=== PATIENT | female | born 1955 | race Caucasian/White ===

== ENCOUNTER → 2020-01-03 | Outpatient (CLI) | payer OTHER ==
[~2020-01-03] MED LIST: AMOX500 PO; CEPH500 PO; CIPR500 PO; Cipro500 MG PO; DIAZ5 PO; Flagyl500 MG PO; Flexeril 10 mg10 MG PO; HYDACE5 PO; METPRE4DP PO; Motrin800 MG PO; NAPR550 PO; Norco 5-325 Ta1 EACH PO; OXYACE5T PO; Phenergan25 M1 PO; Zofran4 MG PO
== END | disposition home or self-care (01) ==
LOC: LAB EV 10:58 → LAB SHORT 10:58
DX: J20.9 Acute bronchitis, unspecified (principal); Z20.828 Contact with and (suspected) exposure to other viral communicable diseases
CPT/HCPCS: U0003

== ENCOUNTER → 2023-03-08 | Outpatient (CLI) | payer MEDICARE, OTHER | LOC: LAB 13:25 → LAB SHORT 13:25 | DX: L02.91 Cutaneous abscess, unspecified (principal) | CPT/HCPCS: 87070; 87077; 87147; 87186; 87205 ==

== ENCOUNTER 2024-03-31 16:40 | Emergency (ER) | payer MEDICARE, OTHER ==
[~2024-03-31] VITALS: Ht 167.6 cm; Wt 65.3 kg
[2024-03-31 18:14] LABS: BASOPHILS ABSOLUTE AUTO 0.05 K/mm3 (0.00-0.23); BASOPHILS PERCENT AUTO 1 % (0-2); EOSINOPHILS PERCENT AUTO 4 % (0-6); Hematocrit 36.6 % (33.0-51.0); Hemoglobin 12.4 g/dL (11.5-16.0); IMMATURE GRAN ABSOLUTE AUTO 0.04 K/mm3 (0.00-0.10); IMMATURE GRAN PERCENT AUTO 1 % (0-1); LYMPHOCYTES ABSOLUTE AUTO 2.32 K/mm3 (0.84-5.20); LYMPHOCYTES PERCENT AUTO 28 % (21-46); MONOCYTES PERCENT AUTO 8 % (4-13); Mean Corpuscular HGB 29.7 pg (26.0-34.0); Mean Corpuscular HGB Conc 33.9 g/dL (31.5-36.5); Mean Corpuscular Volume 88 fL (80-100); Mean Platelet Volume 10.3 fL (9.1-12.4); NEUTROPHILS ABSOLUTE AUTO 5.03 K/mm3 (1.96-9.15); NEUTROPHILS PERCENT AUTO 60 % (41-73); Platelet Count 254 K/mm3 (150-400); RDW Coefficient Variation 12.1 % (11.7-14.2); Red Blood Cell Count 4.18 M/mm3 (3.80-5.20); White Blood Cell Count 8.44 K/mm3 (4.00-11.30)
[2024-03-31 18:44] LABS: Albumin, Blood 3.3 g/dL (3.4-5.0); Bilirubin, Total 0.9 mg/dL (0.1-1.0); Bun/Creatinine Ratio 18.3 (12.0-20.0); Calcium, Blood 8.8 mg/dL (8.5-10.1); Creatinine, Blood 0.49 mg/dL (0.40-1.00); Globulin, Blood 3.4 g/dL (2.2-4.0); Potassium, Blood 3.2 mmol/L (3.5-5.5); Total Protein, Blood 6.7 g/dL (6.4-8.2)
[2024-03-31 19:00] VITALS: BP 168/83
[2024-03-31] MEDS ORDERED: Potassium Chloride 20 MEQ/15 ML UDC PO ONE (19:00)
[2024-03-31] MEDS ORDERED: ATOR40TA PO (19:18)
[2024-03-31] MEDS ORDERED: TRAM50 PO (19:19)
[2024-03-31] MEDS ORDERED: Cyclobenzaprine5 MG PO (19:20)
== END 2024-03-31 19:39 | disposition home or self-care (01) ==
LOC: ER 16:40
PROVIDERS: Student in an Organized Health Care Education/Training Program
DX: I16.0 Hypertensive urgency (principal); E87.6 Hypokalemia; F17.200 Nicotine dependence, unspecified, uncomplicated; Z98.890 Other specified postprocedural states
CPT/HCPCS: 80053; 84484; 85025; 99283; A9270

== ENCOUNTER 2024-12-24 12:57 | Emergency (ER) | payer MEDICARE, OTHER ==
[~2024-12-24] VITALS: Ht 167.6 cm; Wt 61.2 kg
[~2024-12-24 12:57] MED LIST changes: +ATOR40TA PO; +Cyclobenzaprine5 MG PO; +TRAM50 PO
[2024-12-24 14:36] LABS: Albumin/Globulin Ratio 1.1 (0.8-1.8); Bilirubin, Total 0.3 mg/dL (0.1-1.0); Bun/Creatinine Ratio 25.4 (12.0-20.0); Calcium, Blood 10.1 mg/dL (8.5-10.1); Creatinine, Blood 0.63 mg/dL (0.40-1.00); Globulin, Blood 3.7 g/dL (2.2-4.0); Potassium, Blood 4.4 mmol/L (3.5-5.5); Total Protein, Blood 7.7 g/dL (6.4-8.2)
[2024-12-24] MEDS ORDERED: LISI20 PO (15:44)
[2024-12-24] MEDS ORDERED: NEURONTIN300 MG PO (15:44)
[2024-12-24] MEDS ORDERED: METFORMIN HCL500 M2 PO (15:45)
[2024-12-24] MEDS ORDERED: BASAGLAR K100 UNIT/3 SC (15:46)
[2024-12-24] MEDS ORDERED: ASPI81CH PO (15:46)
[2024-12-24] MEDS ORDERED: NS 1,000 ML IV SCH (16:00)
[2024-12-24 16:44] LABS: BASOPHILS PERCENT AUTO 1 % (0-2); EOSINOPHILS ABSOLUTE AUTO 1.31 K/mm3 (0.00-0.68); EOSINOPHILS PERCENT AUTO 10 % (0-6); Hematocrit 41.5 % (33.0-51.0); Hemoglobin 13.5 g/dL (11.5-16.0); IMMATURE GRAN ABSOLUTE AUTO 0.05 K/mm3 (0.00-0.10); IMMATURE GRAN PERCENT AUTO 0 % (0-1); LYMPHOCYTES ABSOLUTE AUTO 3.51 K/mm3 (0.84-5.20); LYMPHOCYTES PERCENT AUTO 27 % (21-46); MONOCYTES PERCENT AUTO 6 % (4-13); Mean Corpuscular HGB Conc 32.5 g/dL (31.5-36.5); Mean Corpuscular Volume 92 fL (80-100); Mean Platelet Volume 10.7 fL (9.1-12.4); NEUTROPHILS ABSOLUTE AUTO 7.27 K/mm3 (1.96-9.15); NEUTROPHILS PERCENT AUTO 56 % (41-73); Platelet Count 249 K/mm3 (150-400); RDW Coefficient Variation 13.2 % (11.7-14.2); RDW Standard Deviation 44.6 fL (35.1-46.3); White Blood Cell Count 13.04 K/mm3 (4.00-11.30)
[2024-12-24 17:34] LABS: Source, Urine Clean Catch
[2024-12-24 17:45] LABS: Appearance, Urine Clear (Clear); Bilirubin, Urine Neg (Neg); Blood, Urine Neg (Neg); Glucose Qualitative, Urine Neg (Neg); Ketones, Urine Neg (Neg); Leukocyte Esterase, Urine Neg (Neg); Nitrite, Urine Neg (Neg); Protein, Urine Neg (Neg); Specific Gravity, Urine 1.015 (1.003-1.022); Urobilinogen, Urine NORM (Normal)
[2024-12-24 17:55] LABS: Color, Urine Pale Yellow (P-Yellow)
[2024-12-24 18:00] VITALS: BP 177/67
== END 2024-12-24 18:43 | disposition home or self-care (01) ==
LOC: ER 12:57
PROVIDERS: Physician Assistant; Student in an Organized Health Care Education/Training Program
DX: R55 Syncope and collapse (principal); F17.200 Nicotine dependence, unspecified, uncomplicated; Z79.84 Long term (current) use of oral hypoglycemic drugs; Z79.82 Long term (current) use of aspirin; Z79.899 Other long term (current) drug therapy
CPT/HCPCS: 70498; 80053; 81003; 83880; 84484; 85025; 93005; 93010; 96360-59; 99284-25; J7030; Q9967

== ENCOUNTER 2025-03-26 07:30 | Day surgery (SDC) | payer MEDICARE, OTHER ==
[2025-03-26] VITALS (10 sets, daily range): BP systolic 103–163; BP diastolic 52–103
[~2025-03-26] VITALS: Ht 167.6 cm; Wt 63.0 kg
[~2025-03-26 07:30] MED LIST changes: +ASPI81CH PO; +Acetaminophen650 M1 PO; +BASAGLAR K100 UNIT/3 SC; +Hair, Skin & N1 EACH PO; +LISI20 PO; +METFORMIN HCL500 M2 PO; +NEURONTIN300 MG PO; +TRESIBA FL100 UNIT/2 SC
[2025-03-26] MEDS ORDERED: NS 500 ML IV ONE (07:35)
[2025-03-26] MEDS ORDERED: Nitroglycerin 2 MG/20 ML BTL ONE (07:36)
[2025-03-26] MEDS ORDERED: Heparin Sodium 1000 Units/ML 10ML MDV ONE (07:36)
[2025-03-26] MEDS ORDERED: NS 1,000 ML IV ONE ×2 (07:36→08:27)
[2025-03-26] MEDS ORDERED: Midazolam HCl 1MG / ML 2ML Vial ONE ×2 (08:26→08:42)
[2025-03-26] MEDS ORDERED: FentaNYL Citrate 50 MCG/ML 2 ML Injection ONE (08:27)
[2025-03-26] MEDS ORDERED: HydrALAZINE HCl 20 MG / ML 1ML Vial ONE (08:59)
--- NOTE | 2025-03-26 09:50 | NUR ---
PATIENT ARRIVED BACK TO RECOVERY ROOM WITH HOB FLAT. RIGHT GROIN ACCESS SITE C/D/I SOFT/NONTENDER, NO EVIDENCE OF BLEEDING. PATIENT COMPLAINING ABOUT NEEDING TO USE THE RESTROOM. PUREWICK IN PLACE, BUT HAVING DIFFICULTY, WILL CONTINUE TO MONITOR. VSS ON RA.
--- NOTE | 2025-03-26 09:50 | NUR ---
PT BACK TO RECOVERY FROM LAB. PT A&O. GROIN SITE SOFT AND NON-TENDER PER PT. NO BLEEDING/HEMATOMA NOTED.
--- NOTE | 2025-03-26 11:29 | NUR ---
FEMORAL SITE SOFT AND NON-TENDER PER PT. NO BLEEDING/HEMATOMA NOTED. BILAT DP AND PT PULSES PRESENT. PT AMBULATED TO RESTROOM W/O ASSISTANCE. [facility] CALLED TO PHARMACY.
[2025-03-26] MEDS ORDERED: CLOP75 PO (11:31)
--- NOTE | 2025-03-26 12:42 | NUR ---
PT GIVEN DC INSTRUCTIONS AND VERBALIZED UNDERSTANDING. IV OUT. FEMORAL SITE SOFT AND NON-TENDER PER PT. NO BLEEDING/HEMATOMA NOTED. PT CHANGED AND TAKEN TO LBY VIA WC. DAUGHTER TO TAKE PT HOME.
== END 2025-03-26 13:23 | disposition home or self-care (01) ==
LOC: MHTC 07:30
DX: E11.51 Type 2 diabetes mellitus with diabetic peripheral angiopathy without gangrene (principal); I70.223 Atherosclerosis of native arteries of extremities with rest pain, bilateral legs; E78.5 Hyperlipidemia, unspecified; I10 Essential (primary) hypertension; Z87.891 Personal history of nicotine dependence; Z79.4 Long term (current) use of insulin; Z79.82 Long term (current) use of aspirin; Z79.84 Long term (current) use of oral hypoglycemic drugs; Z79.899 Other long term (current) drug therapy; Z98.890 Other specified postprocedural states
CPT/HCPCS: 37221; 37222; 75625; 75716; 75774; 76937; 99152; 99153; A9270; C1725; C1760; C1769; C1876; C1887; C1894; J0360; J1644; J2250; J3010; J7030; J7050; Q9967

== ENCOUNTER 2025-03-27 13:43 | Emergency (ER) | payer MEDICARE, OTHER ==
[~2025-03-27] VITALS: Ht 167.6 cm; Wt 81.7 kg
[~2025-03-27 13:43] MED LIST changes: +CLOP75 PO
[2025-03-27 14:14] LABS: BASOPHILS ABSOLUTE AUTO 0.10 K/mm3 (0.00-0.23); BASOPHILS PERCENT AUTO 1 % (0-2); EOSINOPHILS ABSOLUTE AUTO 0.88 K/mm3 (0.00-0.68); EOSINOPHILS PERCENT AUTO 7 % (0-6); Hematocrit 36.6 % (33.0-51.0); Hemoglobin 12.4 g/dL (11.5-16.0); IMMATURE GRAN ABSOLUTE AUTO 0.07 K/mm3 (0.00-0.10); IMMATURE GRAN PERCENT AUTO 1 % (0-1); LYMPHOCYTES ABSOLUTE AUTO 2.82 K/mm3 (0.84-5.20); LYMPHOCYTES PERCENT AUTO 21 % (21-46); MONOCYTES ABSOLUTE AUTO 1.24 K/mm3 (0.16-1.47); MONOCYTES PERCENT AUTO 9 % (4-13); Mean Corpuscular HGB Conc 33.9 g/dL (31.5-36.5); Mean Corpuscular Volume 93 fL (80-100); NEUTROPHILS ABSOLUTE AUTO 8.38 K/mm3 (1.96-9.15); NEUTROPHILS PERCENT AUTO 62 % (41-73); NRBC ABSOLUTE 0.00 K/mm3 (0.00-0.02); NRBC Auto 0.0 /100 WBC (0.0-0.2); Platelet Count 293 K/mm3 (150-400); RDW Coefficient Variation 12.9 % (11.7-14.2); RDW Standard Deviation 43.8 fL (35.1-46.3)
[2025-03-27 14:40] LABS: Alanine Aminotransfer (ALT/SGP 17.0 U/L (12-78); Albumin, Blood 3.6 g/dL (3.4-5.0); Albumin/Globulin Ratio 1.0 (0.8-1.8); Anion Gap 7.0 mmol/L (3-11); Aspartate Aminotrans (AST/SGOT 14.0 U/L (12-37); Bilirubin, Total 0.4 mg/dL (0.1-1.0); Blood Urea Nitrogen 15.0 mg/dL (8-24); CO2, Blood 27.0 mmol/L (21-32); Calcium, Blood 8.6 mg/dL (8.5-10.1); Chloride, Blood 107.0 mmol/L (98-108); Creatinine, Blood 0.59 mg/dL (0.40-1.00); Globulin, Blood 3.7 g/dL (2.2-4.0); Glucose, Blood 231.0 mg/dL (70-99); Potassium, Blood 3.6 mmol/L (3.5-5.5); Sodium, Blood 137.0 mmol/L (136-145); Total Protein, Blood 7.3 g/dL (6.4-8.2)
[2025-03-27] MEDS ORDERED: NS 1,000 ML IV SCH (15:15)
[2025-03-27 16:00] VITALS: BP 165/66
== END 2025-03-27 16:38 | disposition home or self-care (01) ==
LOC: ER 13:43
PROVIDERS: Emergency Medicine
DX: R42 Dizziness and giddiness (principal); F17.200 Nicotine dependence, unspecified, uncomplicated; G43.909 Migraine, unspecified, not intractable, without status migrainosus; Z79.02 Long term (current) use of antithrombotics/antiplatelets; Z79.84 Long term (current) use of oral hypoglycemic drugs; Z79.82 Long term (current) use of aspirin; Z79.899 Other long term (current) drug therapy
CPT/HCPCS: 80053; 85025; 93005; 93010; 96360; 99284-25; J7030